=== PATIENT | male | born 1980 | race American Indian/Alaskan Native ===

== ENCOUNTER 2019-11-11 15:22 | Emergency (ER) | payer SELFPAY ==
[~2019-11-11] VITALS: Ht 177.8 cm; Wt 70.3 kg
[2019-11-11] MEDS ORDERED: LORAZEPAM INJ 2 MG/ML VIAL ONE (15:39)
[2019-11-11 16:03] VITALS: BP 129/73
[2019-11-11] MEDS ORDERED: oxyCODONE/APAP (5/325 MG) 1 UDTAB TABLET ONE (16:22)
[2019-11-11] MEDS ORDERED: oxyCODONE/APAP (5/325 MG) 1 UDTAB TABLET PO ONE (16:30)
--- NOTE | 2019-11-11 16:31 | NUR ---
PT MEDICATED ORDERED. D/C HOME W/ PRESCRIPTION IN STABLE CONDITION.
== END 2019-11-11 16:34 | disposition home or self-care (01) ==
LOC: ER 15:26
DX: K02.9 Dental caries, unspecified (principal); R68.84 Jaw pain
CPT/HCPCS: J2060

== ENCOUNTER 2019-12-04 03:19 | Emergency (ER) | payer MEDICAID ==
[~2019-12-04] VITALS: Ht 175.3 cm; Wt 70.3 kg
--- NOTE | 2019-12-04 03:35 | NUR ---
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 AAOX4, VSS, BREATHING EVEN AND UNLABORED ON RA W/ NAD NOTED. PT CONNECTED TO THE MONITOR AND PX
[2019-12-04] MEDS ORDERED: oxyCODONE/APAP (5/325 MG) 1 UDTAB TABLET ONE (03:41)
[2019-12-04] MEDS ORDERED: PENICILLIN G BENZATHINE 2.4 MMU/4 ML ML IM ONE ×2 (03:42→04:00)
[2019-12-04 03:50] VITALS: BP 117/83
--- NOTE | 2019-12-04 03:50 | NUR ---
Patient discharged to home in stable condition. Written and verbal after care instructions given. Patient verbalizes understanding of instruction.
[2019-12-04] MEDS ORDERED: oxyCODONE/APAP (5/325 MG) 1 UDTAB TABLET PO ONE (04:00)
== END 2019-12-04 03:51 | disposition home or self-care (01) ==
LOC: ER 03:24
DX: K02.9 Dental caries, unspecified (principal); F17.200 Nicotine dependence, unspecified, uncomplicated
CPT/HCPCS: 96372; 99283; J0558

== ENCOUNTER 2020-07-27 08:11 | Emergency (ER) | payer SELFPAY ==
[~2020-07-27] VITALS: Ht 175.3 cm; Wt 65.8 kg
[2020-07-27 08:17] VITALS: BP 130/79
--- NOTE | 2020-07-27 08:22 | NUR ---
DR. AVILES AT BEDSIDE.
[2020-07-27] MEDS ORDERED: TDAP [DIPH/PERTUSSIS/TET] 0.5 ML VIAL IM ONE ×2 (08:30→08:38)
--- NOTE | 2020-07-27 08:52 | NUR ---
TECH AT BEDSIDE FOR WOUND CLEANING AND DRESSING.
--- NOTE | 2020-07-27 09:05 | NUR ---
Patient discharged to home in stable condition. Written and verbal after care instructions given. Patient verbalizes understanding of instruction.
== END 2020-07-27 09:06 | disposition home or self-care (01) ==
LOC: ER 08:15
DX: S60.352A Superficial foreign body of left thumb, initial encounter (principal); W45.8XXA Other foreign body or object entering through skin, initial encounter; Y93.89 Activity, other specified; Y92.89 Other specified places as the place of occurrence of the external cause; Y99.8 Other external cause status
CPT/HCPCS: 10120; 73130; 90471; 90715; 99285; A6403

== ENCOUNTER 2022-02-16 20:15 | Emergency (ER) | payer SELFPAY ==
[~2022-02-16] VITALS: Ht 175.3 cm; Wt 65.8 kg
--- NOTE | 2022-02-16 21:00 | NUR ---
BIBS. FLU SYMPTOMS X 1 DAY. COUGH, NASAL CONGESTION & BODYACHE. PATIENT HAS NEVER BEEN VACCINATED, LIVING BY HIMSELF AND CLAIMED NOT BEING EXPOSED TO ANYBODY WHO IS SICK. PLACED COMFORTABLY IN BED. VITALS CHECKED.
--- NOTE | 2022-02-16 21:00 | NUR ---
SEEN BY DR BERNAL WITH ORDERS
--- NOTE | 2022-02-16 21:23 | NUR ---
CXR AT BEDSIDE
[2022-02-16] MEDS ORDERED: IBUP-1957 PO (21:58)
[2022-02-16] MEDS ORDERED: FLUT16SP16 BNOSTRILS (21:58)
[2022-02-16] MEDS ORDERED: LEVO5TAB29 PO (21:58)
[2022-02-16 22:06] VITALS: BP 142/79
--- NOTE | 2022-02-16 22:06 | NUR ---
Patient discharged to home in stable condition. Written and verbal after care instructions given. Patient verbalizes understanding of instruction.
== END 2022-02-16 22:07 | disposition home or self-care (01) ==
LOC: ER 20:20
DX: J06.9 Acute upper respiratory infection, unspecified (principal); F17.200 Nicotine dependence, unspecified, uncomplicated
CPT/HCPCS: 71045-TC

== ENCOUNTER 2022-06-07 16:23 | Emergency (ER) | payer SELFPAY ==
[~2022-06-07] VITALS: Ht 175.3 cm; Wt 65.8 kg
[~2022-06-07 16:23] MED LIST: FLUT16SP16 BNOSTRILS; IBUP-1957 PO; LEVO5TAB29 PO
[2022-06-07 16:31] VITALS: BP 128/82
--- NOTE | 2022-06-07 17:10 | NUR ---
PT NO LONGER IN ROOM. NOT SEEN BY ER PROVIDER.
== END 2022-06-07 17:12 | disposition left against medical advice (07) ==
LOC: ER 16:29
DX: Z53.21 Procedure and treatment not carried out due to patient leaving prior to being seen by health care provider (principal)